=== PATIENT | male | born 1945 | race Two or more races ===

== ENCOUNTER 2019-05-25 09:04 | Emergency (ER) | payer MEDICARE, MEDICAID ==
[~2019-05-25] VITALS: Ht 152.4 cm; Wt 50.9 kg
[~2019-05-25 09:04] MED LIST: ASPI-1264 PO; ATOR10TA87 PO; LISI-222 PO; LISI40TA4 PO; POLY17PO10 PO
[2019-05-25 09:59] LABS: BASOPHILS # (AUTO) 0.1 X10'3 (0-0.2); BASOPHILS % (AUTO) 0.6 % (0-1); EOSINOPHILS # (AUTO) 0.1 X10'3 (0-0.9); EOSINOPHILS % (AUTO) 1.6 % (0-6); HEMATOCRIT 43.4 % (42.0-52.0); HEMOGLOBIN 14.3 g/dl (14.0-17.9); LYMPHOCYTES # (AUTO) 2.2 X10'3 (1.1-4.8); LYMPHOCYTES % (AUTO) 27.1 % (21-51); MEAN CORPUSCULAR HGB CONC 33.1 g/dL (33.0-36.5); MEAN CORPUSCULAR VOLUME 81.6 FL (78-98); MEAN PLATELET VOLUME 7.7 FL (7.4-10.4); MONOCYTES # (AUTO) 1.3 X10'3 (0-0.9); MONOCYTES % (AUTO) 16.1 % (2-12); NEUTROPHILS # (AUTO) 4.3 X10'3 (1.8-7.7); NEUTROPHILS % (AUTO) 54.6 % (42-75); PLATELET COUNT 250 X10'3 (140-440); RED BLOOD COUNT 5.32 X10'6 (4.70-6.10); RED CELL DISTRIBUTION WIDTH 14.9 % (11.5-14.5)
--- NOTE | 2019-05-25 09:59 | NUR ---
PT AMBLUATORY TO THE BATHROOM WITH STEADY GAIT TO PROVIDER URINE PER ORDERS NOW, SENT SAMPLE TO LAB
[2019-05-25 10:05] LABS: CLARITY,URINE CLEAR (Clear); COLOR,URINE STRAW (Yellow); GLUCOSE, URINE NEGATIVE (Neg); KETONES,URINE NEGATIVE (Neg); LEUKOCYTE ESTERASE ,URINE NEGATIVE (Neg); NITRITES, URINE NEGATIVE (Neg); OCCULT BLOOD,URINE TRACE-INTACT (Neg); PH,URINE 5.5 (4.8-8.0); PROTEIN,URINE NEGATIVE (Neg); UROBILINOGEN,URINE 0.2 E.U/dL (0.2-1.0)
[2019-05-25 10:06] LABS: UA COLLECTION TYPE CLN CATCH MIDSTREAM
[2019-05-25 10:18] LABS: BACTERIA,URINE NONE SEEN /HPF (Neg); MUCUS STRANDS NONE SEEN /LPF (Neg); RBC,URINE NONE SEEN /HPF (0-2); SQUAMOUS EPITHELIAL CELL,UR FEW /LPF (FEW); WBC,URINE NONE SEEN /HPF (0-4)
[2019-05-25 10:20] LABS: ALANINE AMINOTRANSFERASE 21 U/L (12-78); ALBUMIN 3.5 G/DL (3.4-5.0); ALBUMIN/GLOBULIN RATIO 0.8 (1.1-1.5); ALKALINE PHOSPHATASE 80 IU/L (46-116); ANION GAP 9 (8-16); ASPARTATE AMINO TRANSFERASE 22 U/L (10-37); BILIRUBIN,TOTAL 0.7 MG/DL (0.1-1.0); BLOOD UREA NITROGEN 13 MG/DL (7-18); BUN/CREATININE RATIO 14.6 (5.4-32.0); CALCIUM 8.9 MG/DL (8.5-10.1); CHLORIDE 104 MMOL/L (99-107); CREATININE 0.89 MG/DL (0.60-1.10); GLUCOSE 97 MG/DL (70-104); POTASSIUM 3.5 MMOL/L (3.5-5.1); SODIUM 142 MMOL/L (135-145); TOTAL CARBON DIOXIDE 29.3 MMOL/L (24-32); TOTAL PROTEIN 7.8 G/DL (6.4-8.2); eGFR 84 ML/MIN
[2019-05-25 10:36] LABS: PLATELET ESTIMATE NORMAL; TOTAL CELLS COUNTED 100
[2019-05-25 11:40] VITALS: BP 120/89
--- NOTE | 2019-05-25 11:55 | NUR ---
PT AMBULATORY TO THE BATHROOM WITH STEADY GAIT PER REQUEST, WAITING FOR CT RESULTS AT THIST TIME.
== END 2019-05-25 12:34 | disposition home or self-care (01) ==
LOC: ER 09:04
DX: M54.5 Low back pain (principal); M54.6 Pain in thoracic spine; I10 Essential (primary) hypertension; Z79.82 Long term (current) use of aspirin; Z79.899 Other long term (current) drug therapy
CPT/HCPCS: 36415; 74176; 80053; 81001; 85025; 99284

== ENCOUNTER 2025-07-04 13:41 | Emergency (ER) | payer MEDICARE, MEDICAID ==
[~2025-07-04] VITALS: Ht 152.4 cm; Wt 46.0 kg
[~2025-07-04 13:41] MED LIST changes: +LISI40TA20 PO; -LISI40TA4 PO
[2025-07-04 13:45] VITALS: TEMP 98.2
[2025-07-04 14:18] LABS: MEAN PLATELET VOLUME 8.2 FL (7.4-10.4); RED CELL DISTRIBUTION WIDTH 15.2 % (11.5-14.5)
[2025-07-04 14:19] LABS: LEUKOCYTE ESTERASE ,URINE NEGATIVE (Neg); NITRITES, URINE NEGATIVE (Neg); OCCULT BLOOD,URINE TRACE-INTACT (Neg)
[2025-07-04 14:20] LABS: UA COLLECTION TYPE CLN CATCH MIDSTREAM
[2025-07-04 14:23] LABS: AMORPHOUS URATES 1+; SQUAMOUS EPITHELIAL CELL,UR NONE SEEN /LPF (FEW)
[2025-07-04 14:24] LABS: MUCUS STRANDS NONE SEEN /LPF (Neg)
[2025-07-04 14:37] LABS: CREATININE 0.60 MG/DL (0.60-1.10); TOTAL CARBON DIOXIDE 35.5 MMOL/L (24-32); eCRCL 66 ML/MIN; eGFR > 90 ML/MIN
--- NOTE | 2025-07-04 16:00 | Physician Documentation ---
History of Present Illness ~ General Chief Complaint: Abdominal Pain w/vomiting Stated Complaint: PERSISTENT HICCUPS Time Seen by MD: 15:16 Primary Medical Doctor: Laz Source: patient, family (10) Mode of Arrival: POV, Ambulatory History of Present Illness Initial Comments Patient was brought in by his son for evaluation of chronic hiccups. He has a history of lung cancer diagnosed in November of 2023, received radiation therapy and is still on daily oral chemotherapy. He visited his radiation oncologist on Saturday, was told that everything looked good. The patient developed hiccups the same day, which has been mostly present, although they occasionally get better for a short period of time. It is making it difficult for the patient to sleep or eat. He reportedly took a leftover baclofen which briefly gave him some relief but then the hiccups returned after 30 minutes. He has also tried Pepcid which made no significant improvement. The patient has not been vomiting recently but does have chronic nausea for which he takes Zofran. He reports he is almost out of the Zofran. He has tried numerous non pharmacologic modalities, such as breath-holding, Valsalva, eating a spoonful of sugar, lemon juice, and breath holding. None of these have helped. Ironically, the patient has had no hiccups since arriving here. Medication Reconciliation Allergies: Coded Allergies: No Known Allergies (Unverified , 10/26/09) Scheduled Aspirin* (Aspirin*), 1 TABLET PO DAILY, (Reported) Atorvastatin Calcium* (Lipitor*), 1 TABLET PO HS, (Reported) Lisinopril* (Lisinopril*), 5 MG PO DAILY Lisinopril* (Lisinopril*), 5 TABLET PO DAILY, (Reported) Polyethylene Glycol 3350* (Miralax*), 1 PKT PO DAILY, (Reported) Past Medical History Past Medical History: High Cholesterol, Hypertension, Kidney Stones, Lung Cancer Past Surgical History: no surgical history Smoking Status: Never smoker Alcohol Use: None Drug Use: none Lives with: Spouse Review of Systems All Other Systems at this time: Reviewed and Negative Physical Exam Physical Exam Vital Signs: Temperature: 98.2, Source: Oral, Heart Rate: 73, Respiratory Rate: 18, BP: 127/67, Pulse Oximetry: 98, Weight: 46.000 Oxygen Flow Rate: 0 Physical Exam General: Pt is awake, alert, oriented x4 per his son, in no acute distress but chronically ill appearing. No hiccups noted at this time. Head: Normocephalic and atraumatic. Eyes: Conjunctiva normal. ENT: Mucous membranes moist. Neck: Supple. Chest: Clear to auscultation bilaterally, without rales, rhonchi, or wheezes. There is no accessory muscle use or retractions. Cardiac: Regular rate and rhythm without murmurs, gallops or rubs. Palpation of the chest wall is normal. Abd: Soft, nondistended, nontender, with normoactive bowel sounds. No guarding or rebound. Extremities: Within normal limits without cyanosis, clubbing, or edema. Skin: [place], warm and dry with no significant rash appreciated. Neuro: Cranial nerves II-XII grossly intact. Progress Results/Orders Results/Orders Completed Orders - JAMES SPENCER MD Cbc/Diff (07/04/25 13:47) BMP (07/04/25 13:47) Lipase (07/04/25 13:47) CMP (07/04/25 13:47) Ua W/Microscopic, Cult If Ind (07/04/25 13:48) Gabapentin Capsule (Neurontin Capsule) (07/04/25 15:35) Normal Saline 1000ml (0.9% Sodium Chlori (07/04/25 16:20) Medications Received in ER Medications (Trade) Dose Ordered Sig/Siria Route PRN Reason Start Time Stop Time Status Last Admin Dose Admin (Neurontin capsule) 100 mg ONCE ONCE PO 07/04/25 15:35 07/04/25 15:53 DC 07/04/25 16:32 100 MG (0.9% sodium chloride (NS) 1000ml IV soln) 1,000 ml ONCE ONCE IVB 07/04/25 16:20 07/04/25 16:21 DC 07/04/25 16:32 1,000 ML Vital Signs 07/04/25 07/04/25 07/04/25 07/04/25 13:45 14:51 15:00 17:00 Temp 98.2 Pulse 72 73 78 Resp 16 18 18 B/P (MAP) 133/58 127/67 (87) 131/62 (85) Pulse Ox 98 98 98 O2 Flow Rate 0 0 0 Laboratory Tests Test 07/04/25 13:48 10/19/25 14:03 Urine Specimen Description Cln catch midstream Urine Color Straw Urine Clarity Clear Urine pH 7.0 Urine Specific [place] 1.010 Urine Protein Negative Urine Glucose (UA) Negative Urine Ketones Negative Urine Occult Blood Trace-intact Urine Nitrite Negative Urine Bilirubin Negative Urine Urobilinogen 0.2 Urine Leukocyte Esterase Negative Urine RBC 0-2 Urine WBC None seen Urine Squamous Epithelial Cells None seen Urine Amorphous Urates 1+ Urine Bacteria None seen Urine Mucus None seen Urine Culture Indicated Not ind Volume Urine Centrifuged 10 ml Urine Comment White Blood Count 8.0 Red Blood Count 4.95 Hemoglobin 13.8 L Hematocrit 41.6 L Mean Corpuscular Volume 84.1 Mean Corpuscular Hemoglobin 27.9 Mean Corpuscular Hemoglobin Concent 33.2 Red Cell Distribution Width 15.2 H Platelet Count 189 Mean Platelet Volume 8.2 Neutrophils (%) (Auto) 63.2 Lymphocytes (%) (Auto) 17.7 L Monocytes (%) (Auto) 18.9 H Eosinophils (%) (Auto) 0 Basophils (%) (Auto) 0.2 Neutrophils # (Auto) 5.1 Lymphocytes # (Auto) 1.4 Monocytes # (Auto) 1.5 H Eosinophils # (Auto) 0.0 Basophils # (Auto) 0.0 CBC Comment Sodium Level 129 L Potassium Level 3.6 Chloride Level 91 L Carbon Dioxide Level 35.5 H Anion Gap 3 L Blood Urea Nitrogen 10 Creatinine 0.60 Estimated GFR/1.73 m2 > 90 BUN/Creatinine Ratio 16.7 Glucose Level 108 H Calcium Level 8.8 Total Bilirubin 0.7 Aspartate Amino Transf (AST/SGOT) 32 Alanine Aminotransferase (ALT/SGPT) 29 Alkaline Phosphatase 84 Total Protein 7.6 Albumin 3.7 Globulin 3.9 Albumin/Globulin Ratio 0.9 L Lipase 43 Chemistry Comments Medical Decision Making Differential Diagnosis Patient presenting for intractable hiccups of several days duration, making it difficult for him to eat or sleep comfortably. His lack of sleep is creating daytime drowsiness and weakness. There is mild hyponatremia which is being corrected in the ED -- no other electrolyte abnormalities noted. The patient's son shows me a picture of the patient's initial chest x-ray which showed near whiteout of the right lung, and secondary x-rays which now showed improvement of the collapse but a continuing mass in the right hilum. This may be the structural etiology of the patient's hiccups. I am going to be prescribing him a small amount of gabapentin, to see if this will help with his symptoms. Patient is to follow up with his PMD and his oncologists. He understands to return to the emergency department for any worsening of his condition or any other concerns. Departure Time of Disposition: 17:50 Disposition: 01 HOME / SELF CARE / HOMELESS Impression: Primary Impression: Intractable hiccups Condition: Stable Discharge Instructions: Hiccups Additional Instructions: Please follow-up closely with your regular physician, your oncologist, and your radiation oncologist. We will start new medications to try to control the hiccups -- please be careful as this medication might make you sleepy or off- balance. Return to the ER if any worsening or new symptoms or other concerns. Referrals: NO PRIMARY CARE PROVIDER (PCP) Prescriptions Gabapentin (Gabapentin) 100 Mg Capsule 1 CAP PO Q8H for hiccups, #20 CAP 0 Refills Prov: JAMES SPENCER MD 07/04/25 Education Educated: Patient Educated regarding: diagnosis, treatment JAMES SPENCER MD Jul 04, 2025 16:00
[2025-07-04] MEDS: normal saline 1000ML IV soln IVB ONE (16:32)
[2025-07-04] MEDS ORDERED: GABA-530 PO (17:54)
[2025-07-04 18:04] VITALS: BP 141/79; PULSE 83; RESP 16; O2SAT 98
== END 2025-07-04 18:11 | disposition home or self-care (01) ==
LOC: ER 13:42
DX: R06.6 Hiccough (principal); I10 Essential (primary) hypertension; E78.00 Pure hypercholesterolemia, unspecified; Z85.118 Personal history of other malignant neoplasm of bronchus and lung; Z87.442 Personal history of urinary calculi; Z79.82 Long term (current) use of aspirin; Z79.899 Other long term (current) drug therapy
CPT/HCPCS: 80053; 81001; 83690; 85025; 99284; J7030

== ENCOUNTER 2025-07-07 10:27 | Emergency (ER) | payer MEDICARE, MEDICAID ==
[~2025-07-07] VITALS: Ht 149.9 cm; Wt 45.5 kg
[~2025-07-07 10:27] MED LIST changes: +GABA-530 PO
[2025-07-07 10:35] VITALS: BP 134/58; PULSE 84; RESP 18; TEMP 97; O2SAT 98
--- NOTE | 2025-07-07 12:40 | Physician Documentation ---
History of Present Illness ~ Chief Complaint: Mechanical Fall Stated Complaint: R LEG PAIN Time Seen by MD: 12:37 Primary Medical Doctor: Laz RESENDEZ This is a 79-year-old male with a history of chronic low back pain who presents with worsened low back pain, and new buttock pain and bilateral thigh pain following a mechanical fall in the bathtub striking his buttocks. No head str rosalinda or loss of consciousness reported. Patient is ambulatory though painful. Tetanus within 5 Years?: No (per son at bedside ) Medication Reconciliation Allergies: Coded Allergies: No Known Allergies (Unverified , 07/07/25) Scheduled Aspirin* (Aspirin*), 1 TABLET PO DAILY, (Reported) Atorvastatin Calcium* (Lipitor*), 1 TABLET PO HS, (Reported) Gabapentin (Gabapentin), 1 CAP PO Q8H Lisinopril* (Lisinopril*), 5 MG PO DAILY Lisinopril* (Lisinopril*), 5 TABLET PO DAILY, (Reported) Polyethylene Glycol 3350* (Miralax*), 1 PKT PO DAILY, (Reported) Past Medical History Past Medical History: High Cholesterol, Hypertension, Kidney Stones, Lung Cancer Past Surgical History: no surgical history Alcohol Use: None Drug Use: none Lives with: Spouse Review of Systems ROS As stated above in the HPI, otherwise all systems are reviewed and negative. Physical Exam Vital Signs: Temperature: 97.0, Source: Temporal, Heart Rate: 84, Respiratory Rate: 18, BP: 134/58, Pulse Oximetry: 98, Weight: 45.500 Physical Exam VITALS: Reviewed and as above. GENERAL: Alert, nontoxic appearing, no apparent distress. HEENT: No C-spine tenderness RESPIRATORY: No increased work of breathing, no respiratory distress, speaking in full clear sentences CV: Brisk capillary refill to lower extremities BACK: No central spinal tenderness, no crepitus, no step-offs MUSCULOSKELETAL: Left greater than right thigh tenderness, no deformity, ROM intact to lower extremities NEURO: Sensation intact to lower extremities Progress Results/Orders Results/Orders Vital Signs 07/07/25 10:35 Temp 97.0 Pulse 84 Resp 18 B/P (MAP) 134/58 Pulse Ox 98 EKG/XRAY/CT/US/VASC/MRI Bone/Soft Tissue X-Ray (Spine) #1: Additional Comment Exam: FEMUR 1 VIEW PROCEDURE: Right femur radiographs. INDICATION: Fall TECHNIQUE: 2 views of the right femur were obtained. COMPARISON: None. FINDINGS: There is no evidence of fracture or dislocation. Joint spaces are maintained. The soft tissues are unremarkable. IMPRESSION: 1. No fracture or dislocation. Electronically Signed by:FREDY DURON MD Date & Time: 07/07/25 1242 Dictated by: FREDY DURON MD Dictation date and time: 07/07/25 1228 I have reviewed and agree with the radiology report. I have reviewed and interpreted the imaging as: No fracture or dislocation Bone/Soft Tissue X-Ray (Spine) #2: Additional Comment Exam: FEMUR 1 VIEW CLINICAL HISTORY: Fall TECHNIQUE: 2 views of the left femur were obtained. COMPARISON: DI FEMUR 1 VIEW on DOS: 07/07/25 FINDINGS: No acute fracture or dislocation is seen. No soft tissue abnormality is evident. There are no significant degenerative changes. IMPRESSION: 1. No fracture or dislocation of the left femur. Electronically Signed by:FREDY DURON MD Date & Time: 07/07/25 1243 Dictated by: FREDY DURON MD Dictation date and time: 07/07/258 I have reviewed and agree with the radiology report. I have reviewed and interpreted the imaging as: No fracture or dislocation Bone/Soft Tissue X-Ray (Ext.) #1: Additional Comment Exam: SACRUM & COCCYX DI SACRUM COCCYX HISTORY: Fall TECHNICAL DATA: Frontal, Crawford and lateral views were obtained of the sacrum and coccyx. COMPARISON: None FINDINGS: No fracture or focal abnormality is demonstrated involving the sacrum. There is severe L4 compression fracture and mild L5 compression fracture of indeterminate age. IMPRESSION: 1. No evidence of sacral fracture. 2. L4 and L5 compression fractures of indeterminate age. Electronically Signed by:FREDY DURON MD Date & Time: 07/07/25 1241 Dictated by: FREDY DURON MD Dictation date and time: 07/07/25 1228 I have reviewed and agree with the radiology report. I have reviewed and interpreted the imaging as: Nonacute appearing compression fracture in lumbar spine Bone/Soft Tissue X-Ray (Ext.) #2: Additional Comment Exam: LUMBAR SPINE LIMITED INDICATION: Fall COMPARISON: DI SACRUM COCCYX on DOS: 07/07/25 TECHNIQUE: Frontal and lateral views of the lumbar spine were obtained. FINDINGS: The lumbar vertebral alignment is normal. The intervertebral disc spaces are well-maintained. No significant facet arth ropathy is noted. There severe L4 compression deformity of indeterminate age. Mild L5 compression deformity. Mild T11 compression deformity also of indeterminate age. The paravertebral soft tissues are grossly unremarkable. IMPRESSION: 1. Severe L4 compression deformity of indeterminate age. 2. Mild L5 and T11 compression deformities also of indeterminate age. Electronically Signed by:FREDY DURON MD Date & Time: 07/07/25 1239 Dictated by: FREDY DURON MD Dictation date and time: 07/07/25 1239 I have reviewed and agree with the radiology report. I have reviewed and interpreted the imaging as: Nonacute appearing compression fractures lumbar and thoracic spine Medical Decision Making Additional information obtaine: family Findings This 79-year-old male presented with pain to his bilateral thighs, buttocks, and worsened pain to his low back after a mechanical slip and fall in the bathtub striking his buttocks. Imaging did not demonstrate evidence of fracture or dislocation to femurs or hips, imaging demonstrated vertebral compression fractures of indeterminate age, discussion with the patient family members patient does have history of compression fractures in lower back, given his history imaging not represent an acute vertebral fractures. Patient is otherwise well-appearing and ambulatory, it is reassuring patient reports no new weakness or numbness in legs and no loss of bowel or bladder control. Patient treated for pain in the emergency department. Patient reports having PRN for tramadol at home which has been effective for pain management, patient will follow up with his primary care provider in three days. Patient is otherwise well-appearing and appropriate for outpatient follow up. Differential Dx:Considerations: Include: Closed head injury, Cardiac injury, Fracture(s), Pneumothorax, Cerebral contusion, Spine injury, Tracheal injury, Vascular injury, Contusion(s), Foreign body(s), Laceration(s) Departure Time of Disposition: 13:23 Disposition: 01 HOME / SELF CARE / HOMELESS Impression: Primary Impression: Fall Qualified Codes: W19.XXXA - Unspecified fall, initial encounter Additional Impressions: Bilateral thigh pain Buttock pain Acute exacerbation of chronic low back pain Condition: Improved Discharge Instructions: Fall Prevention in the Home, Adult, [id number] Additional Instructions: There were no fractures found on your x-rays. Please continue to use your previously prescribed tramadol as needed for pain. Please follow up with your primary care provider as scheduled. Please return to the emergency department for any new or worsening concerning symptoms. Referrals: NO PRIMARY CARE PROVIDER (PCP) Education Educated: Patient Educated regarding: diagnosis, treatment, prognosis, need for follow up Signature Scribe Signature: No scribe Attestation: The note accurately reflects work and decisions made by me.VERA Cherry 07/07/25 20:48 EM[facility] DUMONT Jul 07, 2025 12:39 [facility],MELISSA Jade MD Jul 11, 2025 12:45
--- NOTE | 2025-07-07 12:43 | RADIOLOGY REPORT ---
DI SACRUM COCCYX HISTORY: Fall TECHNICAL DATA: Frontal, Crawford and lateral views were obtained of the sacrum and coccyx. COMPARISON: None FINDINGS: No fracture or focal abnormality is demonstrated involving the sacrum. There is severe L4 compression fracture and mild L5 compression fracture of indeterminate age. IMPRESSION: 1. No evidence of sacral fracture. 2. L4 and L5 compression fractures of indeterminate age.
--- NOTE | 2025-07-07 12:44 | RADIOLOGY REPORT ---
PROCEDURE: Right femur radiographs. INDICATION: Fall TECHNIQUE: 2 views of the right femur were obtained. COMPARISON: None. FINDINGS: There is no evidence of fracture or dislocation. Joint spaces are maintained. The soft tissues are unremarkable. IMPRESSION: 1. No fracture or dislocation.
--- NOTE | 2025-07-07 12:46 | RADIOLOGY REPORT ---
CLINICAL HISTORY: Fall TECHNIQUE: 2 views of the left femur were obtained. COMPARISON: DI FEMUR 1 VIEW on DOS: 07/07/25 FINDINGS: No acute fracture or dislocation is seen. No soft tissue abnormality is evident. There are no significant degenerative changes. IMPRESSION: 1. No fracture or dislocation of the left femur.
[2025-07-07] MEDS: HYDROcodone/acetaminophen 5mg/325mg tablet PO ONE (13:37)
== END 2025-07-07 13:41 | disposition home or self-care (01) ==
LOC: ER 10:28
DX: G89.29 Other chronic pain (principal); M54.50 Low back pain, unspecified; M79.651 Pain in right thigh; M79.652 Pain in left thigh; E78.00 Pure hypercholesterolemia, unspecified; I10 Essential (primary) hypertension; Z85.118 Personal history of other malignant neoplasm of bronchus and lung; Z87.442 Personal history of urinary calculi; Z79.82 Long term (current) use of aspirin; Z79.899 Other long term (current) drug therapy; W18.2XXA Fall in (into) shower or empty bathtub, initial encounter; Y93.89 Activity, other specified; Y92.89 Other specified places as the place of occurrence of the external cause; Y99.8 Other external cause status
CPT/HCPCS: 72100; 72220; 73551; 99284; J7030

== ENCOUNTER 2025-08-16 14:58 | Outpatient (CLI) | payer MEDICARE, MEDICAID | END 2025-08-16 23:59 | disposition home or self-care (01) | LOC: LAB 14:58 | PROVIDERS: ATTEND Specialist | DX: E11.9 Type 2 diabetes mellitus without complications (principal) | CPT/HCPCS: 36415; 83036 ==

== ENCOUNTER 2025-08-18 14:19 | Outpatient (CLI) | payer MEDICARE, MEDICAID ==
[2025-08-16 15:34] LABS: MEAN PLATELET VOLUME 7.3 FL (7.4-10.4); RED CELL DISTRIBUTION WIDTH 16.8 % (11.5-14.5)
[2025-08-16 16:16] LABS: CREATININE 0.81 MG/DL (0.60-1.10); TOTAL CARBON DIOXIDE 23.1 MMOL/L (24-32); eGFR > 90 ML/MIN
--- NOTE | 2025-08-18 16:12 | RADIOLOGY REPORT ---
CLINICAL HISTORY: SECONDARY MALIGNANT NEOPLASM OF BONE TECHNIQUE: MRI of the brain was performed with and without gadolinium. 15 ml of clariscan was administered intravenously. COMPARISON: None FINDINGS: Evaluation is limited due to image degradation secondary to patient motion. There is no abnormal restricted diffusion to suggest acute infarction. There is mild brain volume loss. There is Extensive [place] T2 hyperintense signal abnormality throughout the white matter both cerebral hemispheres and enmanuel, which is compatible with a very severe burden of nonspecific chronic small vessel ischemic change. There is a small old left inferomedial cerebellar infarct. There is no evidence for acute ischemic changes, mass, mass effect, or extra- axial fluid collection. There is no hydrocephalus or midline shift. The cerebral sulci and subarachnoid cisterns are not effaced. The imaged paranasal sinuses are clear. The globes are intact. The midline structures, including the corpus callosum, are unremarkable. The intracranial flow voids are maintained. There is no abnormal post contrast enhancement. IMPRESSION: No acute intracranial abnormality seen. No evidence for intracranial malignancy or metastatic disease. Mild brain volume loss. Very severe chronic small vessel ischemic change. 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
[2025-08-19] MEDS ORDERED: GADOTERATE MEGLUMINE 7.5 MMOL/15 ML VIAL IV ONE (07:01)
== END 2025-08-18 23:59 | disposition home or self-care (01) ==
LOC: MRI 14:19
PROVIDERS: ATTEND Internal Medicine Medical Oncology
DX: I67.82 Cerebral ischemia (principal); C79.51 Secondary malignant neoplasm of bone; C79.31 Secondary malignant neoplasm of brain; I63.9 Cerebral infarction, unspecified
CPT/HCPCS: 36415; 70553; 80053; 85025; A9575